=== PATIENT | female | born 1990 | race American Indian/Alaskan Native ===

== ENCOUNTER 2017-11-02 04:43 | Outpatient (CLI) | payer OTHER ==
[2017-11-02] MEDS ORDERED: LACTATED RINGERS 500 ML IV ONE (04:50)
[2017-11-02 05:04] VITALS: BP 116/60
[2017-11-02 05:26] LABS: Bilirubin,Urine NEG (Negative); Blood,Urine SM (Negative); Color,Urine Yellow (Yellow); Mucus,Urine FEW /HPF; Nitrite,Urine NEG (Negative); Protein,Urine <15 mg/dL mg/dL (Negative); Urobilinogen,Urine < 2.0 mg/dL (<2.0)
== END 2017-11-02 07:00 | disposition home or self-care (01) ==
LOC: TRG 04:43
PROVIDERS: ATTEND Obstetrics & Gynecology
DX: O26.893 Other specified pregnancy related conditions, third trimester (principal); R10.9 Unspecified abdominal pain; R10.2 Pelvic and perineal pain; M54.9 Dorsalgia, unspecified; Z3A.36 36 weeks gestation of pregnancy
CPT/HCPCS: 81001; J7120

== ENCOUNTER 2017-11-14 01:06 | Outpatient (CLI) | payer SELFPAY ==
[2017-11-14 01:20] VITALS: BP 128/68
== END 2017-11-14 01:50 | disposition home or self-care (01) ==
LOC: TRG 01:06
PROVIDERS: ATTEND Obstetrics & Gynecology
DX: O47.1 False labor at or after 37 completed weeks of gestation (principal); Z3A.38 38 weeks gestation of pregnancy
CPT/HCPCS: 59025